=== PATIENT | male | born 1955 | race Two or more races ===

== ENCOUNTER 2018-01-21 11:38 | Outpatient (CLI) | payer OTHER ==
[2018-01-25] MEDS ORDERED: COZAAR50 MG PO (14:08)
[2018-01-25] MEDS ORDERED: CADUET 10 MG-21 EACH PO (14:08)
[2018-01-25] MEDS ORDERED: PROTONIX40 MG PO (14:09)
[2018-01-25] MEDS ORDERED: ASPIR 8181 MG PO (14:09)
== END 2018-01-21 11:45 | disposition home or self-care (01) ==
LOC: EKG 11:38
DX: N40.1 Benign prostatic hyperplasia with lower urinary tract symptoms (principal)

== ENCOUNTER 2018-08-14 09:31 | Outpatient (CLI) | payer OTHER ==
[~2018-08-14 09:31] MED LIST: ASPIR 8181 MG PO; CADUET 10 MG-21 EACH PO; COZAAR50 MG PO; PROTONIX40 MG PO
== END 2018-08-14 09:34 | disposition home or self-care (01) ==
LOC: SONOGRAMA 09:31
DX: N40.1 Benign prostatic hyperplasia with lower urinary tract symptoms (principal); N13.1 Hydronephrosis with ureteral stricture, not elsewhere classified

== ENCOUNTER → 2020-05-10 | Outpatient (CLI) | payer OTHER | END | disposition home or self-care (01) | LOC: TOM 16:31 | PROVIDERS: ATTEND Urology | DX: N13.1 Hydronephrosis with ureteral stricture, not elsewhere classified (principal); N40.0 Benign prostatic hyperplasia without lower urinary tract symptoms ==

== ENCOUNTER → 2021-07-14 13:46 | Outpatient (CLI) | payer OTHER | END | disposition home or self-care (01) | LOC: NUCLEAR 13:00 | PROVIDERS: ATTEND Specialist/Technologist, Other Nephrology | DX: N13.71 Vesicoureteral-reflux without reflux nephropathy (principal); N13.9 Obstructive and reflux uropathy, unspecified | CPT/HCPCS: 78830; A9539 ==